=== PATIENT | female | born 1935 | race Caucasian/White ===

== ENCOUNTER 2017-03-19 10:14 | Day surgery (SDC) | payer BC ==
[2017-03-19 11:03] VITALS: BMI 28.3
[2017-03-19 13:27] VITALS: TEMP 97.7
[2017-03-19 13:45] VITALS: PULSE 54
[2017-03-19 14:11] VITALS: BP 131/58
--- NOTE | 2017-03-24 11:37 | PATH ---
Surgical Pathology Report Patient Name: ALANNA HALL [facility]. Rec. #: [id number] /Age/Gender: 1935 (Age: 81) / F Account: [id number] Location: [facility]-ENDOSCOPY Taken: 03/19/2017 Received: 03/23/2017 Reported: 03/24/2017 Physicians: Eliceo Kelly M.D. Specimen(s) Received A: DESCENDING COLON POLYP B: BX CECAL VALVE POLYP Clinical History History of adenoma/polyp Polyp, diverticulosis Final Diagnosis A. COLON, DESCENDING, POLYP, POLYPECTOMY: FRAGMENTS OF TUBULAR ADENOMA. B. CECAL VALVE POLYP, BIOPSY: POLYPOID FRAGMENTS OF COLONIC MUCOSA WITH FEATURES OF INFLAMMATORY/POST INFLAMMATORY-TYPE POLYP AND PROMINENT SUBMUCOSAL ADIPOSE TISSUE (SEE COMMENT). Comment: The findings are compatible with lipoma in proper endoscopic settings. Electronically Signed Lisandro Castellon M.D. Gross Description A. Received in formalin, labeled "descending colon polyp" are 3 ortiz, irregular portions of soft tissue ranging from 0.2-0.4 cm in greatest dimension. The specimens are submitted in toto in one cassette. B. Received in formalin, labeled "biopsy cecal valve polyp" are 2 ortiz, irregular portions of soft tissue measuring 0.3 and 0.5 cm in greatest dimension. The specimens are submitted in toto in one cassette. 03/23/201703/23/2017
== END 2017-03-19 14:15 | disposition home or self-care (01) ==
LOC: JASU-ENDO 10:14
PROVIDERS: ATTEND Internal Medicine Gastroenterology
PROC: 0DBC8ZX Excision of Ileocecal Valve, Via Natural or Artificial Opening Endoscopic, Diagnostic (ICD-10-PCS; 2017-03-19)
PROC: 0DBM8ZX Excision of Descending Colon, Via Natural or Artificial Opening Endoscopic, Diagnostic (ICD-10-PCS; principal; 2017-03-19 12:00)
DX: K63.5 Polyp of colon (principal); D12.4 Benign neoplasm of descending colon; Z86.010 Personal history of colon polyps; K57.30 Diverticulosis of large intestine without perforation or abscess without bleeding; K64.8 Other hemorrhoids
CPT/HCPCS: 88305-TC